=== PATIENT | female | born 1995 | race Caucasian/White ===

== ENCOUNTER 2022-03-09 17:39 | Emergency (ER) | payer OTHER ==
[~2022-03-09] VITALS: Ht 170.2 cm; Wt 56.4 kg
[2022-03-09] MEDS ORDERED: METH-1164 PO (17:48)
[2022-03-09] MEDS ORDERED: PRENMIS3 PO (17:48)
[2022-03-09] MEDS ORDERED: CYCL-707 PO (17:48)
[2022-03-09] MEDS ORDERED: CELE1CAP7 PO (17:48)
[2022-03-09] MEDS ORDERED: ACET-683 PO (17:48)
[2022-03-09] MEDS ORDERED: ICY5PAD2 TOP (17:48)
[2022-03-09 20:34] VITALS: BP 117/81
== END 2022-03-09 20:41 | disposition home or self-care (01) ==
LOC: M ED 17:39
DX: M54.31 Sciatica, right side (principal); Z88.0 Allergy status to penicillin; Z79.82 Long term (current) use of aspirin; Z79.1 Long term (current) use of non-steroidal anti-inflammatories (NSAID); Z79.810 Long term (current) use of selective estrogen receptor modulators (SERMs); Z79.899 Other long term (current) drug therapy

== ENCOUNTER → 2023-03-19 | Outpatient (CLI) | payer OTHER ==
[~2023-03-19] MED LIST: ACET-683 PO; CELE1CAP99 PO; CYCL-707 PO; ICY5PAD2 TOP; LEXA1TAB PO; LIDO1PAD TOP; MELA5TAB21 PO; METH-1164 PO; PRENMIS3 PO
[2023-03-19 15:52] LABS: BASO % 0.5 % (0.0-1.0); EOS # 0.2 10^3/uL (0.0-0.5); HEMATOCRIT 37.6 % (36.0-47.0); HEMOGLOBIN 12.6 g/dl (12.0-15.5); LYMPH # 1.6 10^3/uL (1.5-5.0); LYMPH % 38.2 % (24.0-44.0); MEAN CORPUSCULAR HEMOGLOBIN 29.5 pg (27.0-33.0); MEAN CORPUSCULAR HGB CONC 33.5 g/dl (32.0-36.5); MEAN CORPUSCULAR VOLUME 88.1 fl (80.0-96.0); MONO # 0.5 10^3/uL (0.0-0.8); MONO % 10.8 % (2.0-8.0); NEUTROPHILS # 1.9 10^3/uL (1.5-8.5); NEUTROPHILS % 45.3 % (36.0-66.0); PLATELET COUNT, AUTOMATED 239 10^3/uL (150-450); RED BLOOD COUNT 4.27 10^6/uL (4.00-5.40); WHITE BLOOD COUNT 4.2 10^3/uL (4.0-10.0)
[2023-03-19 16:15] LABS: IRON (FE) 53 UG/DL (50-170); PERCENT SATURATION 18.3 % (13.2-45.0); TOTAL IRON BINDING CAPACITY 289 UG/DL (250-425)
[2023-03-19 16:16] LABS: ALBUMIN 4.1 G/DL (3.2-5.2); ALKALINE PHOSPHATASE 35 U/L (46-116); ALT/SGPT 12 U/L (7.0-40); AST/SGOT 13 U/L (<34); BILIRUBIN,TOTAL 0.3 MG/DL (0.3-1.2); BLOOD UREA NITROGEN 12 MG/DL (9-23); CALCIUM LEVEL 9.3 MG/DL (8.5-10.1); CARBON DIOXIDE LEVEL 29 MMOL/L (20-31); CHLORIDE LEVEL 104 MMOL/L (98-107); CREATININE FOR GFR 0.88 MG/DL (0.55-1.30); GLOMERULAR FILTRATION RATE > 60.0 (>60); GLUCOSE, FASTING 82 MG/DL (60-100); POTASSIUM SERUM 4.2 MMOL/L (3.5-5.1); SODIUM LEVEL 139 MMOL/L (136-145); TOTAL PROTEIN 7.1 G/DL (5.7-8.2)
[2023-03-19 16:17] LABS: FERRITIN 113.5 NG/ML (7.3-270.7)
== END ==
LOC: M LAB 15:14
PROVIDERS: ATTEND Nurse Practitioner
DX: D50.9 Iron deficiency anemia, unspecified (principal)

== ENCOUNTER 2024-06-30 08:58 | Day surgery (SDC) | payer OTHER ==
[~2024-06-30] VITALS: Ht 170.2 cm; Wt 60.2 kg
[~2024-06-30 08:58] MED LIST changes: +LEXA1TAB2 PO
[2024-06-30] MEDS ORDERED: SUGAMMADEX SODIUM 500 MG/5 ML VIAL (BRIDION) As Ordered ONE (10:03)
[2024-06-30] MEDS ORDERED: LIDOCAINE 2% 100MG/5ML SDV (FOR ANES.) As Ordered ONE (10:03)
[2024-06-30] MEDS ORDERED: propofoL 200 MG/20 ML VIAL As Ordered ONE (10:03)
[2024-06-30] MEDS ORDERED: ROCURONIUM BROMIDE 50MG/5ML VIAL As Ordered ONE (10:03)
[2024-06-30] MEDS ORDERED: ONDANSETRON 4MG 2ML VIAL As Ordered ONE (10:03)
[2024-06-30] MEDS ORDERED: fentaNYL 100 MCG/2 ML INJECTION As Ordered ONE (10:03)
[2024-06-30] MEDS ORDERED: MIDAZOLAM INJ 2MG/2ML VIAL As Ordered ONE (10:03)
[2024-06-30] MEDS: LR 1,000 ML IV SCH (10:09)
[2024-06-30] MEDS ORDERED: METOCLOPRAMIDE INJ 10MG/2ML VIAL As Ordered ONE (10:19)
[2024-06-30] MEDS ORDERED: diphenhydrAMINE 50MG/ML VIAL As Ordered ONE (10:31)
[2024-06-30] MEDS ORDERED: HYDROmorphone HCL 2MG/ML 1ML VIAL As Ordered ONE (10:35)
[2024-06-30] MEDS: LIDOCAINE W/EPINEPHRINE 1% 20ML VIAL As Ordered ONE (10:35)
[2024-06-30] MEDS: OXYMETAZOLINE 0.05% NASAL SPRAY As Ordered ONE (10:35)
[2024-06-30] MEDS: METHYLENE BLUE 0.5% (5MG/ML) 10 ML AMP (PROVAYBLUE) As Ordered ONE (10:35)
[2024-06-30] MEDS ORDERED: ACETAMINOPHEN 1000MG/100ML IV BAG As Ordered ONE (10:37)
[2024-06-30] MEDS ORDERED: PHENYLephrine 500MCG 5ML (100MCG/ML) SYRINGE As Ordered ONE (10:43)
[2024-06-30] MEDS ORDERED: ePHEDrine SULFATE 25 MG/5 ML(5MG/ML) SYRINGE As Ordered ONE (10:55)
[2024-06-30] MEDS ORDERED: MORPHINE 2 MG/ML 1ML VIAL IV PRN (11:20)
[2024-06-30] MEDS ORDERED: ONDANSETRON 4MG 2ML VIAL IV PRN (11:20)
[2024-06-30] MEDS ORDERED: fentaNYL 100 MCG/2 ML INJECTION IV PRN (11:20)
[2024-06-30] MEDS: oxyCODONE 5MG TAB PO PRN (11:59)
[2024-06-30 12:40] VITALS: BP 102/56; TEMP 97; O2SAT 99
[2024-06-30] MEDS ORDERED: LR 1,000 ML IV SCH (13:15)
== END 2024-06-30 12:50 | disposition home or self-care (01) ==
LOC: M SDC 08:58
PROVIDERS: ATTEND Otolaryngology
DX: J34.829 Nasal valve collapse, unspecified (principal); J34.2 Deviated nasal septum; J34.89 Other specified disorders of nose and nasal sinuses; F41.9 Anxiety disorder, unspecified; Z79.899 Other long term (current) drug therapy
CPT/HCPCS: 30465; 30520; 81025; J0131; J1100; J1171; J1200; J2250; J2371; J2405; J2765; J3010; Q9968